=== PATIENT | male | born 1980 | race Caucasian/White ===

== ENCOUNTER 2020-08-30 14:03 | Inpatient (IN) | payer MEDICARE, MEDICAID, SELFPAY ==
--- NOTE | ~2020-08-30 | XR_ITS ---
EXAMINATION: XR chest 2V DATE: 08/30/2020 15:43 INDICATION: Shortness of breath and chest tightness TECHNIQUE: PA and lateral views of the chest are obtained. COMPARISON: None available FINDINGS: Cardiomegaly is noted. There is a mild diffuse interstitial pattern. Airspace opacities are present in the right lung base. There is no pleural effusion or pneumothorax. The visualized osseous structures are unremarkable. Healed right-sided rib fractures are noted. IMPRESSION: 1. Cardiomegaly with mild pulmonary edema. 2. Right basilar airspace opacity, consistent with atelectasis versus pneumonia. Reviewed, dictated and finalized at location A. TENANCE JOB TITLES IMPRESSION: 1. Cardiomegaly with mild pulmonary edema. 2. Right basilar airspace opacity, consistent with atelectasis versus pneumonia .
--- NOTE | ~2020-08-30 | XR_ITS ---
EXAMINATION: XR chest 2V DATE: 09/01/2020 08:36 INDICATION: Shortness of breath, CHF exacerbation TECHNIQUE: Frontal and lateral views of the chest are obtained COMPARISON: 08/30/1930 FINDINGS: A mild diffuse interstitial pattern persists with improvement. Cardiomegaly is noted. There is no pleural effusion or pneumothorax. Healed right-sided rib fractures are noted. The visualized o sseous structures are otherwise unremarkable. IMPRESSION: 1. Cardiomegaly with improving pulmonary edema. Reviewed, dictated and finalized at location A. INTERCEPT CONTROLLER SUPERVISOR
[2020-08-30 14:06] VITALS: BP 112/89; PULSE 102; RESP 21; TEMP 36.1; O2SAT 98
--- NOTE | 2020-08-30 14:09 | ECG_ITS ---
Measurements Intervals [place] Rate: 103 P: 65 VA: 157 QRS: -50 QRSD: 104 T: 19 QT: 335 QTc: 439 Interpretive Statements SINUS TACHYCARDIA POSSIBLE LEFT ATRIAL ENLARGEMENT LEFT ANTERIOR FASCICULAR BLOCK NONSPECIFIC T-WAVE ABNORMALITY- INF/LAT LEADS ABNORMAL ECG Electronically Signed On 08-30-2020 15:50:09 FINAL INSPECTOR MOVEMENT ASSEMBLY by Cecil Kwong D.O.
[2020-08-30 14:21] LABS: Basophils Absolute Auto 0.1 K/mm3 (0.0-0.1); Basophils Percent Auto 0.5 % (0.2-1.2); Eosinophils Absolute Auto 0.2 K/mm3 (0-0.3); Eosinophils Percent Auto 1.3 % (0-4.4); Hematocrit 39.9 % (42.0-52.0); Hemoglobin 12.5 g/dL (14.0-18.0); Immature Granulocyte Absolute 0.06 K/mm3 (0.00-0.031); Immature Granulocyte Percent A 0.4 % (0-0.5); Lymphocytes Absolute Auto 3.62 K/mm3 (0.9-3.2); Lymphocytes Percent Auto 25.6 % (18.3-44.2); Mean Corpuscular HGB Conc 31.3 g/dl (32-36); Mean Corpuscular Volume 86.2 fl (80-100); Mean Platelet Volume 9.7 fl (7.4-10.4); Monocytes Absolute Auto 1.5 K/mm3 (0.1-0.6); Monocytes Percent Auto 10.3 % (2.6-8.5); Neutrophils Absolute Auto 8.7 K/mm3 (1.3-6.7); Neutrophils Percent Auto 61.9 % (45.5-73.1); Platelet Count Result 314 k/mm3 (150-375); Red Blood Count 4.63 M/mm3 (4.6-6.20); Red Cell Distribution Width 13.6 % (11.5-14.5); White Blood Count 14.1 K/mm3 (4.5-10.0)
[2020-08-30 14:33] LABS: Anion Gap 7 mmol/L (8-16); Blood Urea Nitrogen 18 mg/dL (9-20); Calcium 8.6 mg/dL (8.4-10.2); Carbon Dioxide 24 mmol/L (22-30); Chloride 107 mmol/L (98-107); Estimated CRCL calculation 112 ml/min; Estimated Glomerular Filt Rate > 60; Glucose 106 mg/dL (75-110); INR 1.1; Potassium 4.7 mmol/L (3.4-5.0); Prothrombin Time 14.6 Seconds (11.1-14.7); Sodium 138 mmol/L (137-145)
[2020-08-30 14:34] LABS: Partial Thromboplastin Time 31.7 SECONDS (22.3-36.8)
[2020-08-30 14:46] LABS: NT Pro B Type Natriuretic Pept 4340 PG/ML (5-100); Troponin I < 0.012 ng/mL (0.000-0.034)
[2020-08-30 15:17] VITALS: BP 110/88; PULSE 102; RESP 22; O2SAT 99
[2020-08-30 16:21] VITALS: BP 100/77; PULSE 102; RESP 20; O2SAT 98
[2020-08-30] MEDS: FUROSEMIDE INJ 40 MG/4 ML VIAL IV PUSH ×2 (16:26→21:03)
--- NOTE | 2020-08-30 16:34 | ED.SOB ---
HPI - SOB/Dyspnea General Chief Complaint: Shortness of Breath/Dyspnea Stated Complaint: SHORTNESS OF BREATH Time Seen by Provider: 08/30/20 15:14 Source: patient and police Mode of arrival: EMS Limitations: no limitations History of Present Illness HPI Narrative: 39-year-old with a history of hypertension, CHF here with complaints of shortness of breath, chest pain and right upper quadrant pain since yesterday. Patient is presently incarcerated in [facility] since this morning is been having more symptoms. He presently denies any chest pain. Patient states that he was admitted to [facility] for the same few months ago. He claims that he has been taking his medication. He presently denies any fever or chills. MD elicited complaint: shortness of breath Pertinent past history: congestive heart failure Onset (ago): day(s) (1) Timing: constant Severity: moderate Exacerbating factors: exertion Relieving factors: nothing Known history of: COPD Treatment prior to arrival: none Related Data Home oxygen amount: none Allergies Allergy/AdvReac Type Severity Reaction Status Date / Time No Known Allergies Allergy Verified 08/30/20 15:21 Review of Systems Review of Systems: All systems reviewed & are unremarkable except as noted in HPI and below Constitutional: Constitutional: Reports no additional constitutional complaints Eyes: Eyes: Reports no additional eye complaints ENT: Reports system reviewed and no additional complaints, except as documented Cardiovascular: Cardiovascular: Reports no additional cardiovascular complaints Respiratory: Respiratory: Reports as per HPI Gastrointestinal: Gastrointestinal: Reports no additional gastrointestinal complaints Musculoskeletal: Musculoskeletal: Reports no additional musculoskeletal complaints PMFSH Social History Social History Gender identity (if verbalized by the patient): Male Exam Narrative: Exam Narrative: GENERAL: Well-appearing, well-nourished, and in no acute distress. HEAD: Normocephalic, atraumatic. EYES: PERRLA and EOMI. NECK: Supple. CHEST: Coarse breath sounds bilaterally no obvious wheeze. No respiratory distress. HEART: Regular rate and rhythm. No murmur heard. Normal peripheral pulses. ABDOMEN: Soft, nontender, nondistended, normal active bowel sounds. EXTREMITIES: Normal range of motion. Prosthetic leg left SKIN: Warm, dry, no rash. NEURO: No focal deficits. Alert and oriented x3. PSYCH: Normal mood and affect. Course Course Emergency Course: Patient presently not having any symptoms his EKG did not show any acute ST-T changes however his chest x-ray consistent with pulmonary edema as well as elevated BNP give him IV Lasix 40 mg. Since patient is complaining of intermittent chest pain we will admit him to the floor. I discussed with the [place] agreed to admit the patient. Vital Signs Vital signs: Vital Signs Temperature 36.1 C L 08/30/20 14:06 Pulse Rate 102 H 08/30/20 14:06 Respiratory Rate 21 H 08/30/20 14:06 Blood Pressure 112/89 08/30/20 14:06 Pulse Oximetry 98 08/30/20 14:06 Temperature 36.1 C L 08/30/20 14:06 Pulse Rate 102 H 08/30/20 16:21 Respiratory Rate 20 08/30/20 16:21 Blood Pressure 100/77 08/30/20 16:21 Pulse Oximetry 98 08/30/20 16:21 MDM - SOB/Dyspnea Lab Data Result diagrams: 08/30/20 14:11 08/30/20 14:11 Labs: Lab Results 08/30/20 08/30/20 08/30/20 Range/Units 14:11 14:11 14:11 WBC 14.1 H (4.5-10.0) K/mm3 RBC 4.63 (4.6-6.20) M/mm3 Hgb 12.5 L (14.0-18.0) g/dL Hct 39.9 L (42.0-52.0) % MCV 86.2 (80-100) fl MCH 27.0 (26-34) pg MCHC 31.3 L (32-36) g/dl RDW 13.6 (11.5-14.5) % Plt Count 314 (150-375) k/mm3 MPV 9.7 (7.4-10.4) fl Immature Gran % (Auto) 0.4 (0-0.5) % Neut % (Auto) 61.9 (45.5-73.1) % Lymph % (Auto) 25.6 (18.3-44.2) %
--- NOTE | 2020-08-30 18:40 | ADMGEN ---
This patient, Alirio Kelley, was admitted to Medical Room 252-. Patient/family oriented to hospital policies and general routines including ID bracelet, bed and alarms, visiting hours, pain management, procedures, bathroom and other care routines, personal items, smoking policy, room service/diet, and visiting hours. Information on how to activate the Rapid Response Team has been discussed. Patient/Family are encouraged to report perceived risks to care and to ask questions if they do not understand what they are told or what they should do.
--- NOTE | 2020-08-30 18:40 | PC.NURSE ---
pt removed her own iv intact. pt has taken all vital sign equipment off. pt wishes to leave [facility] and drive herself to [facility] to see dr. leal (hepatobiliary). pt does not wish to wait for hospital to hospital transfer. pt has been made aware the [facility] has been contacted for transfer. pt continues to want to leave [facility]. ed doctor aware
[2020-08-30 19:23] VITALS: BP 128/83; PULSE 99; RESP 16; TEMP 36.4; O2SAT 100
[2020-08-30 20:00] VITALS: BP 90/57; PULSE 101; PULSE 98; RESP 18; TEMP 36.3; O2SAT 100
[2020-08-31] VITALS (11 sets, daily range): BP systolic 93–117; BP diastolic 55–74; PULSE 85–104; RESP 16–20; TEMP 36.1–36.3; O2SAT 96–100
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
[2020-08-31] MEDS: ACETAMINOPHEN 325 MG TABLET 650 MG PO ×2 (05:49→23:01)
[2020-08-31 07:00] LABS: Anion Gap 9 mmol/L (8-16); Blood Urea Nitrogen 18 mg/dL (9-20); Calcium 8.5 mg/dL (8.4-10.2); Carbon Dioxide 24 mmol/L (22-30); Chloride 102 mmol/L (98-107); Estimated CRCL calculation 112 ml/min; Estimated Glomerular Filt Rate > 60; Glucose 139 mg/dL (75-110); Potassium 3.7 mmol/L (3.4-5.0); Sodium 135 mmol/L (137-145)
[2020-08-31] MEDS: FUROSEMIDE INJ 40 MG/4 ML VIAL IV PUSH (07:58)
[2020-08-31] MEDS: ASPIRIN 81 MG CHEWABLE TABLET PO (07:58)
[2020-08-31] MEDS: carvediloL 3.125 MG TABLET PO ×2 (08:45→17:09)
[2020-08-31] MEDS: ENOXAPARIN 40 MG/0.4 ML SYRINGE SUB-Q (08:45)
[2020-08-31] MEDS: POTASSIUM CHLORIDE 20 MEQ TABLET.ER PO (08:45)
--- NOTE | 2020-08-31 10:12 | PM.IMPN ---
Progress Note: A&P Assessment and Plan (1) CHF (congestive heart failure): Qualifiers: Heart failure chronicity: acute on chronic Heart failure type: diastolic Qualified Code(s): I50.33 - Acute on chronic diastolic (congestive) heart failure Code(s): I50.9 - Heart failure, unspecified Status: Acute Assessment and Plan: Newly diagnosed within the last month. Currently chest x-ray consistent with fluid overload as well as possible pneumonia. BNP elevated at 4300. EKG shows sinus tachycardia rate 103. Requesting records from [place] including recent echocardiogram. Patient has been on Entresto but stopped because of hypotension. Appers to have improved overnight with significant urine output per patient and nursing. Lung exam shows minimal rales at bases continue Coreg, will see if his blood pressure can tolerate MAX-inhibitor, but it appears this may need to readdressed by his Lighting Director continue IV diuresis with Lasix 40 mg IV b.i.d., clinically he looks improving will need to make sure he has adequate follow-up I discussed importance of maintaining his weight log and to adjust diuretics as needed Zofran for nausea He has a mild leukocytosis WBC [id number] but he does not have any fevers or other sign of infection. Chest x-ray did have some consolidation in the right lower lobe, will consider antibiotics if not improving. Incentive Spirometer ordered (2) HTN (hypertension), benign: Code(s): I10 - Essential (primary) hypertension Status: Acute Assessment and Plan: BP a bit soft still, 100s sys most recently. history of hypertension, now he states he takes a Coreg because of heart failure not because of blood pressure Monitor closely with diuresis and with Coreg for his HF (3) Anxiety: Code(s): F41.9 - Anxiety disorder, unspecified Status: Acute Assessment and Plan: -patient states he does not on any medication for anxiety however he was diagnosed in the past Subjective Date/time seen: 08/31/20 10:12 Interval history: Patient is a 39 year old male with past medical history of hypertension, anxiety, congestive heart failure, history of right BKA amputation who is here for CHF exacerbation/SOB. Patient states he feels somewhat better today in terms of his SOB. His cough is unchanged. A bit tired today. He and nursing both report he has significant urine output. No other complaints. Denies f/c/s, headaches, dizziness, lightheadedness, changes in v/h, cp/palpitations, n/v/d/c, abd pain, changes in BMs, dysuria, hematuria, cloudy urine, calf pain/swelling. Review of Systems Review of Systems: All systems reviewed & are unremarkable except as noted in HPI and below Exam Narrative: Exam Narrative: General: Patient resting supine in bed in no acute distress. HEENT: Normocephalic, EOMI, oral mucosa moist. Cardiovascular: Rate and rhythm are regular. systolic murmur appreciated at apex Respiratory: minimal bibasilar rales. Non-labored breathing. on RA Abdomen: Soft, non-tender, non-distended, bowel sounds present. Extremities: Right lower extremity BKA. Peripheral pulses intact. Mild LLE edema. NTTP b/l calves Neuro: No focal neurological deficits. Speech is clear. Objective Data Vital Signs Vital Signs: Last Vital Signs Temp 96.9 F L 08/31/20 05:52 Pulse 93 08/31/20 08:45 Resp 16 08/31/20 05:52 BP 102/74 08/31/20 08:00 Pulse Ox 98 08/31/20 08:00 Intake/Output Intake/Output: Intake & Output 08/28/20 08/29/20 08/30/20 08/31/20 23:59 23:59 23:59 23:59 Intake Total 240 200 Output Total 1175 400 Balance -935 -200 Meds/Results Medications: Active Medications Generic Name Dose Route Start Last Admin Trade Name Freq PRN Reason Stop Dose Admin Acetaminophen 650 mg 08/30/20 16:46 08/31/20 05:49 Acetaminophen
[2020-09-01 05:55] LABS: Hematocrit 42.4 % (42.0-52.0); Hemoglobin 13.3 g/dL (14.0-18.0); Mean Corpuscular HGB Conc 31.4 g/dl (32-36); Mean Corpuscular Hemoglobin 26.6 pg (26-34); Mean Corpuscular Volume 84.8 fl (80-100); Mean Platelet Volume 9.3 fl (7.4-10.4); Platelet Count Result 310 k/mm3 (150-375); Red Cell Distribution Width 13.7 % (11.5-14.5); White Blood Count 11.2 K/mm3 (4.5-10.0)
[2020-09-01 05:58] VITALS: BP 105/79; PULSE 90; RESP 16; TEMP 36; O2SAT 99
[2020-09-01 06:15] LABS: Anion Gap 7 mmol/L (8-16); Blood Urea Nitrogen 19 mg/dL (9-20); Calcium 8.8 mg/dL (8.4-10.2); Carbon Dioxide 26 mmol/L (22-30); Chloride 104 mmol/L (98-107); Estimated CRCL calculation 112 ml/min; Estimated Glomerular Filt Rate > 60; Glucose 105 mg/dL (75-110); Magnesium 2.2 mg/dL (1.6-2.3); Potassium 4.2 mmol/L (3.4-5.0); Sodium 137 mmol/L (137-145)
[2020-09-01] MEDS: carvediloL 3.125 MG TABLET PO (09:19)
[2020-09-01] MEDS: ASPIRIN 81 MG CHEWABLE TABLET PO (09:19)
[2020-09-01] MEDS: POTASSIUM CHLORIDE 20 MEQ TABLET.ER PO (09:19)
[2020-09-01] MEDS: FUROSEMIDE INJ 40 MG/4 ML VIAL IV PUSH (09:20)
[2020-09-01] MEDS: ENOXAPARIN 40 MG/0.4 ML SYRINGE SUB-Q (09:20)
--- NOTE | 2020-09-01 10:29 | PM.DS ---
DS: Admitting Diagnosis Admitting Diagnosis Admitting Diagnosis: CHF exacerbation DS: Discharge Diagnosis Discharge Diagnosis (1) CHF (congestive heart failure): Qualifiers: Heart failure chronicity: acute on chronic Heart failure type: diastolic Qualified Code(s): I50.33 - Acute on chronic diastolic (congestive) heart failure Code(s): I50.9 - Heart failure, unspecified Status: Acute Assessment and Plan: Newly diagnosed within the last month. Currently chest x-ray 08/30 consistent with fluid overload as well as possible pneumonia, although clinically does not appear to be pneumonia. CXR reviewed today personally; appears to have improvement. BNP elevated at 4300. EKG shows sinus tachycardia rate 103. Requesting records from [place] including recent echocardiogram. Patient has been on Entresto but stopped because of hypotension. Appears to have improved overnight with significant urine output per patient and nursing. Lung exam shows minimal rales at bases continue Coreg, will see if his blood pressure can tolerate MAX-inhibitor, but will have this readdressed by his Lease Administrator Transition back to home diuretic regimen Instructed him to weigh himself daily Incentive Spirometer ordered (2) HTN (hypertension), benign: Code(s): I10 - Essential (primary) hypertension Status: Acute Assessment and Plan: BP a bit soft still, 100s sys most recently. history of hypertension, now he states he takes a Coreg because of heart failure not because of blood pressure Monitored closely with diuresis and with Coreg for his HF (3) Anxiety: Code(s): F41.9 - Anxiety disorder, unspecified Status: Acute Assessment and Plan: -patient states he does not on any medication for anxiety however he was diagnosed in the past DS: Summary Hospital Course Reason for hospitalization: Dyspnea, CHF exacerbation Hospital Course: Date of arrival: 08/30/20 Date of discharge: 12/31/20 Patient is a 39 yo M with history of hypertension, anxiety, congestive heart failure, history of right BKA amputation who presented to the ED on 08/30 with complaints of dyspnea, chest pain, right upper quadrant abdominal pain. While in the ED, he was given 40 mg IV Lasix for pulmonary edema on CXR and elevated BNP; troponin negative. EKG showed possible left atrial enlargement, left anterior fascicular block and nonspecific Twave abnormality on inf/lateral leads. He was admitted for observation for chest pain and CHF exacerbation. Patient admitted under this setting. Please see H&P for further details. Patient was admitted to the hospitalist service for further management/treatment. Patient continued on IV Lasix with significant improvement in his symptoms. He remained on RA throughout his stay. Repeat CXR on 09/01 showed improving pulmonary edema. Plan was for him to resume his home diuretic and to follow up with his established indirect fire infantryman after discharge. He was to continue his carvedilol as well. MAX inhibitor initiation was considered, however, deferred to Cardiology given his soft blood pressure. It appears he was taken off Entresto at some point prior to arrival to this hospital due to hypotension. Patient agreeable and comfortable with plan for discharge. Patient hemodynamically stable and in improved condition for discharge into police custody due to an outstanding warrant for his arrest on 09/01 Status at Discharge Overall status at discharge: patient is progressing back to baseline Time Spent with Patient Time attestation: Total time spent providing and/or coordinating discharge services: Time spent: Greater than 30 minutes Exam Narrative: Exam Narrative: General: Patient resting supine in bed in no acute distress. HEENT: Normocephalic, EOMI, oral mucosa elva
== END 2020-09-01 10:53 | DRG 293 ==
LOC: ANHED 16:44 → ANH2MED 17:37
PROVIDERS: Emergency Medicine; Admitting Provider Internal Medicine; Emergency Provider Family Medicine; PCP Family Medicine; Visit Provider Physician Assistant
DX: I11.0 Hypertensive heart disease with heart failure (principal); I50.33 Acute on chronic diastolic (congestive) heart failure; F17.210 Nicotine dependence, cigarettes, uncomplicated; F41.9 Anxiety disorder, unspecified; Z79.899 Other long term (current) drug therapy; Z89.511 Acquired absence of right leg below knee
CPT/HCPCS: 36415; 71046; 80048; 83735; 83880; 84484; 85025; 85027; 85610; 85730; 93005; 96374; 99285; A9270; J1650; J1940